=== PATIENT | female | born 1980 | race Caucasian/White ===

== ENCOUNTER 2017-03-16 20:37 | Emergency (ER) | payer MEDICAID ==
[~2017-03-16] VITALS: Ht 160 cm; Wt 84.0 kg
[~2017-03-16 20:37] MED LIST: AMOX500C2 PO; BACTDS PO; CEPH-443 PO; FLUC150T17 PO; IBUP-1542 PO; IBUP100T46 PO; NITR-58 PO; PHEN-537 PO; PREN1TAB13 PO
[2017-03-16 20:39] VITALS: Ht 160 cm; Wt 84.0 kg
--- NOTE | 2017-03-16 21:41 | ERA ---
ER Documentation Chief Complaint Date/Time DATE: 03/16/17 TIME: 21:39 Chief Complaint pelvic pain x 3 days HPI Otherwise healthy 36-year-old female presenting with the chief complaints of right lower pelvic pain 3 days. Patient is also describing left ear discomfort 3 months. Has not done anything to relieve the symptoms. No dysuria or back pain. Denies any aggravating or alleviating factors. No associated manifestations. No other complaints. Nursing notes have been reviewed and are consistent with a history given. ROS All systems reviewed and are negative except as per history of present illness. Medications Home Meds Active Scripts Phenazopyridine Hcl* (Pyridium*) 100 Mg Tab, 100 MG PO TID Y for URINARY PAIN for 3 Days, #9 TAB 0 Refills Prov:MELVINA RAMIREZ PA-C 04/01/16 Nitrofurantoin Monohyd Macrocr (Macrobid) 100 Mg Capsr, 100 MG PO BID for 7 Days , #14 CAP 0 Refills Prov:MELVINA RAMIREZ PA-C 04/01/16 Fluconazole* (Diflucan*) 150 Mg Tablet, 150 MG PO ONCE, #1 TAB Prov:GUS BLUE PA-C 02/26/16 Sulfamethoxazole-Trimethoprim* (Bactrim* DS) 800-160 Mg Tab, 1 TAB PO BID for 7 Days, TAB Prov:GUS BLUE PA-C 02/26/16 Cephalexin* (Keflex*) 500 Mg Capsule, 500 MG PO QID for 7 Days, CAP Prov:GUS BLUE PA-C 02/26/16 Ibuprofen* (Motrin*) 600 Mg Tab, 600 MG PO Q6, #20 TAB Prov:GUS BLUE PA-C 07/29/15 Amoxicillin* (Amoxicillin*) 500 Mg Cap, 500 MG PO TID for 7 Days, CAP Prov:GUS BLUE PA-C 07/29/15 Reported Medications Ibuprofen* (Ibuprofen*) 100 Mg Tab.chew, 200 MG PO DAILY Y for FEVER, TAB.CHEW 05/01/14 Vit-Iron Fumarate-FA ( Vitamins Tablet) 1 Tab Tablet, 1 TAB PO DAILY 11/16/09 Allergies Allergies: Coded Allergies: No Known Allergy (Verified , 04/01/16) PMhx/Soc History of Surgery: No Anesthesia Reaction: No Hx Neurological Disorder: Yes (EPILEPSY) Hx Respiratory Disorders: No Hx Cardiac Disorders: No Hx Psychiatric Problems: No Hx Miscellaneous Medical Probl: No Hx Alcohol Use: No Hx Substance Use: No Hx Tobacco Use: No Smoking Status: Never smoker Physical Exam Vitals Vital Signs Date Time Temp Pulse Resp B/P Pulse Ox O2 Delivery O2 Flow Rate FiO2 03/16/17 20:39 98.2 65 20 131/82 98 Physical Exam Const: Overweight healthy-appearing 36-year-old female no acute distress Head: Atraumatic Eyes: Normal Conjunctiva ENT: Normal External Ears, Nose and Mouth. Neck: Full range of motion..~ No meningismus. Resp: Clear to auscultation bilaterally Cardio: Regular rate and rhythm, no murmurs Abd: Moderate tenderness with deep palpation of the right pelvic area. No adnexal masses palpated. Soft, non tender, non distended. Normal bowel sounds Skin: No petechiae or rashes Back: No CVA tenderness. No midline or flank tenderness Ext: No cyanosis, or edema Neur: Awake and alert Psych: Normal Mood and Affect Results 24 hrs Laboratory Tests Test 03/16/17 23:21 Bedside Urine pH (LAB) 6.0 Bedside Urine Protein (LAB) Negative Bedside Urine Glucose (UA) Negative Bedside Urine Ketones (LAB) Negative Bedside Urine Blood Trace-lysed Bedside Urine Nitrite (LAB) Negative Bedside Urine Leukocyte Esterase (L Negative Procedures/MDM 36-year-old female with a chief complaint of right lower pelvic pain as described in history and physical examination. Urine was negative. Urine dip revealed the following: Unremarkable. Ultrasound was ordered read by the radiologist given the following impression: Unremarkable. Most likely diagnosis is pelvic pain of unknown etiology. I have little suspicion for ovarian torsion, PID, other serious bacterial infection or infectious pathology. Patient will be discharged with instructions to use ibuprofen/ acetaminophen outpatient for discomfort. I have spoke with the patient regarding their condition and future management. They have verbally responded that they understand their status and treatment plan. The patients vitals are stable, and their current condition is appropriate for discharge. The patient will be given discharge instructions with return precautions. Departure Diagnosis: Primary Impression: Acute pain in female pelvis Condition: Stable Additional Instructions: Follow up with your PCP within the next 1-3 days for a more thorough evaluation and a possible referral to a specialist. Return the the emergency department immediately if symptoms worsen or change. If you have any questions regarding medications, ask your pharmacist or us before you leave. If any adverse reactions occur while taking your medications, discontinue the treatment and return to the emergency department immediately. Take your medications as directed, and complete the entire course of treatment. PHILLIP ART PA-C Mar 16, 2017 21:41
--- NOTE | 2017-03-16 21:56 | RADRPT ---
PROCEDURE: US Pelvis. CLINICAL INDICATION: Pelvic pain. TECHNIQUE: The pelvis was evaluated with transabdominal and transvaginal sonography in the axial a nd sagittal planes. COMPARISON: No prior study is available for comparison. FINDINGS: Uterus: 9.1 x 4.4 x 4.8 cm. Endometrium: 6.7 mm. Right ovary: 2.9 x 2.2 x 2.0 cm. Left ovary: 2.1 x 1.7 x 1.7 cm. Uterine masses: None. Ovarian masses: None. Color Doppler and pulsed Doppler sonography demonstrate normal flow to the ova fariba. Other pelvic masses: None. Free fluid: None. IMPRESSION: 1. Normal pelvic ultrasound. RPTAT: QQ .Yimi Cao MD, MD Date Time Electronically viewed and signed by .Yimi Cao MD, on 03/16/2017 21:56 .R/
[2017-03-16 23:13] LABS: URINE BLOOD (Dip) POC Trace-lysed (NEGATIVE)
[2017-03-16 23:45] VITALS: BP 125/76; PULSE 76; RESP 20; TEMP 97.6
== END 2017-03-16 23:45 | disposition home or self-care (01) ==
LOC: FTE 20:37
DX: R10.2 Pelvic and perineal pain (principal)
CPT/HCPCS: 76830; 76856; 81003; Z7502

== ENCOUNTER 2018-03-25 12:42 | Emergency (ER) | END 2018-03-25 14:25 | disposition home or self-care (01) ==

== ENCOUNTER 2018-11-13 08:21 | Emergency (ER) | payer MEDICAID ==
[~2018-11-13] VITALS: Ht 154.9 cm; Wt 86.0 kg
[~2018-11-13 08:21] MED LIST changes: +FLUC150T PO; -FLUC150T17 PO; +FLUT9.9S NASAL; +HC30CR25 TOP; +IBUP100T3 PO; -IBUP100T46 PO; +MED4DP PO
[2018-11-13 08:30] VITALS: BP 111/74; PULSE 56; RESP 18; Ht 154.9 cm; Wt 86.0 kg
[2018-11-13] MEDS ORDERED: KETO120S3 TOP (09:54)
[2018-11-13] MEDS ORDERED: FLUC150T41 PO (09:54)
[2018-11-13] MEDS ORDERED: METR500T PO (10:41)
--- NOTE | 2018-11-13 10:54 | ERD ---
ER Documentation Chief Complaint Chief Complaint sore throat and rash on genital area HPI This is a 38-year-old female patient who presents to the emergency room with complaint of sore throat and vaginal itching x2 days. States over the weekend she [place] and also had unprotected sex. c/o vaginal itching and thick discharge. Is also complaining of bald spot on the top of her head x 1 week. No fevers, +dry cough, no nausea vomiting or abdominal pain. Non- smoker. LMP 3 weeks ago. ROS All systems reviewed and are negative except as per history of present illness. Medications Home Meds Active Scripts Metronidazole* (Flagyl*) 500 Mg Tablet, 500 MG PO BID for bacterial vaginosis for 7 Days, #14 TAB Prov:ANITA POWELL NP 11/13/18 Fluconazole* (Fluconazole*) 150 Mg Tablet, 150 MG PO weekly for tinea capitis, #8 TAB Prov:ANITA POWELL NP 11/13/18 Ketoconazole* (Ketoconazole*) 2% - 120 Ml Shampoo, 1 APPLIC TOP DAILY for tinea capitis for 14 Days, #1 BOTTLE WASH HAIR/SCALP AND RINSE OFF Prov:ANITA POWELL NP 11/13/18 Hydrocortisone* Topical (Hydrocortisone* Topical) 2.5%-28.3 Gm Cream..g., 1 APPLIC TOP BID, #1 TUB Prov:EVANS SAUL PA-C 03/25/18 Fluticasone Propionate (Flonase Allergy Relief) 9.9 Ml [place].susp, 1 SPRAY NASAL BID, #1 BOTTLE TO EACH NOSTRIL Prov:EVANS SAUL PA-C 03/25/18 Methylprednisolone* (Medrol* DOSE PACK) 4 Mg/Dose-Pack Tab.ds.pk, 4 MG PO . DIRECTED for 5 Days, PACKET Prov:EVANS SAUL PA-C 03/25/18 Phenazopyridine Hcl* (Pyridium*) 100 Mg Tab, 100 MG PO TID PRN for URINARY PAIN for 3 Days, #9 TAB 0 Refills Prov:MELVINA RAMIREZ PA-C 04/01/16 Nitrofurantoin Monohyd Macrocr (Macrobid) 100 Mg Capsr, 100 MG PO BID for 7 Days, #14 CAP 0 Refills Prov:MELVINA RAMIREZ PA-C 04/01/16 Fluconazole* (Diflucan*) 150 Mg Tablet, 150 MG PO ONCE, #1 TAB Prov:GUS BLUE PA-C 02/26/16 Sulfamethoxazole-Trimethoprim* (Bactrim* DS) 800-160 Mg Tab, 1 TAB PO BID for 7 Days, TAB Prov:GUS BLUE PA-C 02/26/16 Cephalexin* (Keflex*) 500 Mg Capsule, 500 MG PO QID for 7 Days, CAP Prov:GUS BLUE PA-C 02/26/16 Ibuprofen* (Motrin*) 600 Mg Tab, 600 MG PO Q6, #20 TAB Prov:GUS BLUE PA-C 07/29/15 Amoxicillin* (Amoxicillin*) 500 Mg Cap, 500 MG PO TID for 7 Days, CAP Prov:GUS BLUE PA-C 07/29/15 Reported Medications Ibuprofen* (Ibuprofen*) 100 Mg Tab.chew, 200 MG PO DAILY PRN for FEVER, TAB.CHEW 05/01/14 Vit-Iron Fumarate-FA ( Vitamins Tablet) 1 Tab Tablet, 1 TAB PO DAILY 11/16/09 Allergies Allergies: Coded Allergies: No Known Allergy (Verified , 04/01/16) PMhx/Soc History of Surgery: Yes (C/S, Tubal ligation) Anesthesia Reaction: No Hx Neurological Disorder: Yes (EPILEPSY) Hx Respiratory Disorders: No Hx Cardiac Disorders: No Hx Psychiatric Problems: No Hx Miscellaneous Medical Probl: No Hx Alcohol Use: No Hx Substance Use: No Hx Tobacco Use: No FmHx Family History: No diabetes, No coronary disease, No other Physical Exam Vitals Vital Signs Date Temp Pulse Resp B/P (MAP) Pulse Ox O2 O2 Flow FiO2 Time Delivery Rate 11/13/18 98.7 56 18 111/74 99 08:30 (86) Physical Exam Const: No acute distress Head: Atraumatic, top of head with 2cm x 2cm patch of alopecia with flaking skin, no redness, no swelling, normothermic. Eyes: Normal Conjunctiva, PERRL ENT: Normal External Ears, Right RM clear, Left TM with small effusion, Nose without lesions or drainage, pharynx pink, moist, no lesions, no exudate, no petechiae. Neck: Full range of motion. No meningismus. No lymphadenopathy, no thyromegaly Resp: Clear to auscultation bilaterally, no wheezing or rales Cardio: Regular rate and rhythm, no murmurs Abd: Soft, non tender, non distended. Normal bowel sounds. No hepato-or splenomegaly Skin: No petechiae or rashes Back: No midline or flank tenderness Ext: No cyanosis, or edema Neur: Awake and alert Psych: Normal Mood and Affect Results 24 hrs Laboratory Tests Test 11/13/18 09:50 11/13/18 09:51 POC Beta HCG, Qualitative NEGATIVE Bedside Urine pH (LAB) 6.0 Bedside Urine Protein (LAB) Negative Bedside Urine Glucose (UA) Negative Bedside Urine Ketones (LAB) Negative Bedside Urine Blood Negative Bedside Urine Nitrite (LAB) Negative Bedside Urine Leukocyte Esterase (L Negative Procedures/MDM This is a 38-year-old female patient who presents to the emergency room with multiple complaints including sore throat, vaginal itching, bald spot on top of head. ED COURSE: The patient was stable throughout ED course. I kept the patient and/or family informed of laboratory and diagnostic imaging results throughout the ED course. PROCEDURES: Pelvic Exam: Abdomen: Nontender External Genitalia: Normal Skin Speculum: Normal vaginal mucosa, thick nickerson/green cervical discharge Bimanual: No adnexal masses or tenderness, No CMT MEDICATIONS GIVEN: None. MDM: Microbiology WET MOUNT Final POLYMORPH. LEUKOCYTE 2+ WHITE BLOOD CELLS 2+ RED BLOOD CELLS NONE SEEN BACTERIA 4+ EPITHELIAL CELLS 3+ MYCELIA NONE SEEN YEAST NONE SEEN HYPHAE NONE SEEN CLUE CELLS CLUE CELLS SEEN MOTILE TRICHOMONAS NO MOTILE TRICHOMONAS SEEN Diagnosis and work-up revealed patient has bacterial vaginosis as well as tinea capitis. Patient is otherwise well-appearing, no abdominal pain, low suspicion for PID, ovarian or uterine involvement, risk for fulminant infection. Small area of alopecia to top of head is without signs of cellulitis or necrotizing infection. Both conditions are appropriate for outpatient treatment. Patient verbalizes understanding of appropriate treatment for both conditions and is reliable to follow-up with her primary care physician. DISPOSITION: The patient has been discharge home to follow-up with community physician. Departure Diagnosis: Primary Impression: Bacterial vaginosis Additional Impression: Tinea capitis Condition: Stable Patient Instructions: Fungal Infection, Skin [General], Vaginitis, Bacterial Additional Instructions: Thank you very much for allowing us to participate in your care. Your health and safety is our top priority at [facility]. Call your primary care doctor TOMORROW for an appointment during the next 2-4 days and bring all the information and medications prescribed. Have prescriptions filled and follow precisely the directions on the label. Complete entire course of prescribed medications. Do not drink alcohol while using Flagyl. Increase hydration to 1-2 L/day. If the symptoms get worse and your provider is unavailable, return to the Emergency Department immediately. ANITA POWELL NP November 13, 2018 10:54
== END 2018-11-13 11:05 | disposition home or self-care (01) ==
LOC: FTE 08:21
DX: N76.0 Acute vaginitis (principal); B35.0 Tinea barbae and tinea capitis
CPT/HCPCS: 81003; 81025; 87210; Z7502; 99284

== ENCOUNTER 2019-03-04 08:45 | Emergency (ER) | payer MEDICAID ==
[~2019-03-04] VITALS: Wt 88.6 kg
[~2019-03-04 08:45] MED LIST changes: +AMOX1TAB10 PO; +FLUC150T41 PO; +KETO120S3 TOP; +METR500T PO; +NAPR-985 PO
[2019-03-04 08:58] VITALS: BP 156/79; PULSE 73; RESP 20
== END 2019-03-04 10:18 | disposition home or self-care (01) ==
LOC: FTE 08:45
DX: H72.92 Unspecified perforation of tympanic membrane, left ear (principal); S90.111A Contusion of right great toe without damage to nail, initial encounter; X58.XXXA Exposure to other specified factors, initial encounter; Y92.9 Unspecified place or not applicable
CPT/HCPCS: 73660; Z7502